=== PATIENT | female | born 2000 | race Caucasian/White ===

== ENCOUNTER → 2019-12-09 | Outpatient (CLI) | payer OTHER ==
[~2019-12-09] MED LIST: AMOX250CH PO; ORACONB; PROM6.25SY PO
== END | disposition home or self-care (01) ==
LOC: PLD 11:16 → LAB SHORT 11:16
DX: D22.5 Melanocytic nevi of trunk (principal)
CPT/HCPCS: 88305

== ENCOUNTER → 2021-01-04 | Outpatient (CLI) | payer OTHER ==
[2021-01-04 17:12] LABS: BASOPHILS ABSOLUTE AUTO 0.05 K/mm3 (0.00-0.23); BASOPHILS PERCENT AUTO 1 % (0-2); EOSINOPHILS ABSOLUTE AUTO 0.26 K/mm3 (0.00-0.68); EOSINOPHILS PERCENT AUTO 3 % (0-6); Hematocrit 38.2 % (33.0-51.0); Hemoglobin 12.2 g/dL (11.5-16.0); IMMATURE GRAN ABSOLUTE AUTO 0.04 K/mm3 (0.00-0.10); IMMATURE GRAN PERCENT AUTO 0 % (0-1); LYMPHOCYTES ABSOLUTE AUTO 2.64 K/mm3 (0.84-5.20); LYMPHOCYTES PERCENT AUTO 27 % (21-46); MONOCYTES ABSOLUTE AUTO 0.64 K/mm3 (0.16-1.47); MONOCYTES PERCENT AUTO 7 % (4-13); Mean Corpuscular HGB 24.3 pg (26.0-34.0); Mean Corpuscular HGB Conc 31.9 g/dL (31.5-36.5); Mean Corpuscular Volume 76 fL (80-100); Mean Platelet Volume 11.8 fL (9.1-12.4); NEUTROPHILS ABSOLUTE AUTO 6.25 K/mm3 (1.96-9.15); NEUTROPHILS PERCENT AUTO 63 % (41-73); Platelet Count 321 K/mm3 (150-400); RDW Coefficient Variation 14.7 % (11.7-14.2); RDW Standard Deviation 40.2 fL (35.1-46.3); Red Blood Cell Count 5.02 M/mm3 (3.80-5.20); White Blood Cell Count 9.88 K/mm3 (4.00-11.30)
[2021-01-04 17:17] LABS: Percent Saturation 9.4 % (15.0-50.0)
== END | disposition home or self-care (01) ==
LOC: LAB SHORT 14:00 → LAB 14:00
PROVIDERS: Nurse Practitioner Family
DX: E07.9 Disorder of thyroid, unspecified (principal); R71.8 Other abnormality of red blood cells
CPT/HCPCS: 82728; 83540; 83550; 84443; 85025

== ENCOUNTER → 2022-10-07 | Outpatient (CLI) | payer OTHER ==
[2022-10-08 15:57] LABS: Candida species (DNA Probe) Negative (NEGATIVE); G. vaginalis (DNA Probe) Negative (NEGATIVE); T. vaginalis (DNA Probe) Negative (NEGATIVE)
== END ==
LOC: LAB 15:48 → LAB SHORT 15:48
PROVIDERS: Family Medicine
DX: N89.8 Other specified noninflammatory disorders of vagina (principal)
CPT/HCPCS: 87480; 87510; 87660

== ENCOUNTER → 2023-04-11 | Outpatient (CLI) | payer OTHER ==
[2023-04-13 09:54] LABS: HEPATITIS B SURFACE ANTIBODY <3.10 IU/L
[2023-04-13 11:55] LABS: HEPATITIS B SURFACE ANTIGEN Negative (Negative)
[2023-04-13 12:25] LABS: HIV 1,2 COMBO ANTIGEN/ANTIBODY Negative (Negative)
[2023-04-14 12:59] LABS: HCV QNT BY NAAT (IU/ML) Not Detected; HCV QNT BY NAAT (LOG IU/ML) Not Detected; HCV QNT BY NAAT INTERP Not Detected (Not Detected)
== END | disposition home or self-care (01) ==
LOC: LAB SHORT 13:51 → LAB 13:51
PROVIDERS: Chiropractor
DX: T14.8XXA Other injury of unspecified body region, initial encounter (principal)
CPT/HCPCS: 84460; 87340; 87389; 87522

== ENCOUNTER → 2024-02-09 | Outpatient (CLI) | payer OTHER ==
[2024-02-09 12:27] LABS: Source, Urine Clean Catch
[2024-02-09 14:52] LABS: Appearance, Urine Hazy (Clear); Bilirubin, Urine Neg (Neg); Blood, Urine 1+ (Neg); Color, Urine Yellow (P-Yellow); Glucose Qualitative, Urine Neg (Neg); Ketones, Urine Neg (Neg); Leukocyte Esterase, Urine 2+ (Neg); Nitrite, Urine Neg (Neg); Protein, Urine 1+ (Neg); Urobilinogen, Urine NORM (Normal)
[2024-02-09 15:46] LABS: Bacteria Many /hpf; Squamous Epithelial Cells Mod /hpf (Few)
== END | disposition home or self-care (01) ==
LOC: LAB SHORT 12:25 → LAB 12:25
PROVIDERS: Registered Nurse Community Health
DX: Z34.91 Encounter for supervision of normal pregnancy, unspecified, first trimester (principal)
CPT/HCPCS: 81001; 87086

== ENCOUNTER → 2024-02-09 | Outpatient (CLI) | payer OTHER ==
[2024-02-09 15:38] LABS: BASOPHILS ABSOLUTE AUTO 0.03 K/mm3 (0.00-0.23); BASOPHILS PERCENT AUTO 0 % (0-2); EOSINOPHILS ABSOLUTE AUTO 0.09 K/mm3 (0.00-0.68); EOSINOPHILS PERCENT AUTO 1 % (0-6); Hemoglobin 13.5 g/dL (11.5-16.0); IMMATURE GRAN ABSOLUTE AUTO 0.03 K/mm3 (0.00-0.10); IMMATURE GRAN PERCENT AUTO 0 % (0-1); LYMPHOCYTES ABSOLUTE AUTO 2.07 K/mm3 (0.84-5.20); LYMPHOCYTES PERCENT AUTO 20 % (21-46); MONOCYTES ABSOLUTE AUTO 0.65 K/mm3 (0.16-1.47); MONOCYTES PERCENT AUTO 6 % (4-13); Mean Corpuscular HGB 24.9 pg (26.0-34.0); Mean Corpuscular HGB Conc 32.1 g/dL (31.5-36.5); Mean Corpuscular Volume 78 fL (80-100); NEUTROPHILS ABSOLUTE AUTO 7.27 K/mm3 (1.96-9.15); NEUTROPHILS PERCENT AUTO 72 % (41-73); Platelet Count 294 K/mm3 (150-400); RDW Coefficient Variation 15.2 % (11.7-14.2); RDW Standard Deviation 42.5 fL (35.1-46.3); Red Blood Cell Count 5.42 M/mm3 (3.80-5.20); White Blood Cell Count 10.14 K/mm3 (4.00-11.30)
[2024-02-10 14:12] LABS: Free Thyroxine 1.04 ng/dL (0.70-1.60); Triiodothyronine, Free 3.32 pg/mL (2.18-3.98)
[2024-02-11 15:55] LABS: HEPATITIS B SURFACE ANTIGEN Negative (Negative)
[2024-02-11 16:29] LABS: HEPATITIS C AB CIA INTERP Negative (Negative); HEPATITIS C ANTIBODY CIA INDEX 0.13 IV
[2024-02-11 18:12] LABS: HIV 1,2 COMBO ANTIGEN/ANTIBODY Negative (Negative)
== END | disposition home or self-care (01) ==
LOC: LAB 10:15 → LAB SHORT 10:15
PROVIDERS: Registered Nurse Community Health
DX: Z34.91 Encounter for supervision of normal pregnancy, unspecified, first trimester (principal)
CPT/HCPCS: 84439; 84443; 84481; 86803; 87340; 87389

== ENCOUNTER → 2024-09-02 | Outpatient (CLI) | payer OTHER ==
[2024-09-02 19:45] LABS: Thyroid Stimulating Hormone 6.3 uIU/mL (0.360-4.800)
== END | disposition home or self-care (01) ==
LOC: LAB SHORT 17:30 → LAB 17:30
PROVIDERS: Family Medicine
DX: E03.9 Hypothyroidism, unspecified (principal)
CPT/HCPCS: 84439; 84443; 84481

== ENCOUNTER 2024-09-30 18:42 | Inpatient (IN) | payer OTHER ==
[~2024-09-30] VITALS: Ht 162.6 cm; Wt 137.0 kg
[2024-09-30] MEDS ORDERED: Oxytocin 10 Unit / ML Vial IM PRN (19:25)
[2024-09-30] MEDS ORDERED: FentaNYL 2mcg/ml-Bup 0.1% Epd 250 ML EPI PRN (19:25)
[2024-09-30] MEDS ORDERED: Methylergonovine Maleate 0.2MG / ML 1ML Amp IM PRN (19:25)
[2024-09-30] MEDS ORDERED: Carboprost Tromethamine 250 MCG/ML 1ML Amp IM PRN (19:25)
[2024-09-30] MEDS ORDERED: ePHEDrine Sulfate 50 MG/ML 1ML Injection XX PRN (19:25)
[2024-09-30] MEDS ORDERED: OXYTOCIN/RINGER'S LACTATE 500 ML IV PRN ×2 (19:25)
[2024-09-30] MEDS ORDERED: Ondansetron HCl 2 MG / ML 2ML Vial IV PRN (19:30)
[2024-09-30] MEDS ORDERED: FentaNYL Citrate 50 MCG/ML 2 ML Injection IV PRN (19:35)
[2024-09-30] MEDS ORDERED: Tranexamic Acid 100 ML IV SCH (19:40)
[2024-09-30 20:03] VITALS: BP 131/81
[2024-09-30 20:14] LABS: BASOPHILS ABSOLUTE AUTO 0.01 K/mm3 (0.00-0.23); BASOPHILS PERCENT AUTO 0 % (0-2); EOSINOPHILS ABSOLUTE AUTO 0.05 K/mm3 (0.00-0.68); EOSINOPHILS PERCENT AUTO 0 % (0-6); Hematocrit 32.5 % (33.0-51.0); Hemoglobin 10.2 g/dL (11.5-16.0); IMMATURE GRAN ABSOLUTE AUTO 0.05 K/mm3 (0.00-0.10); IMMATURE GRAN PERCENT AUTO 0 % (0-1); LYMPHOCYTES ABSOLUTE AUTO 2.02 K/mm3 (0.84-5.20); LYMPHOCYTES PERCENT AUTO 17 % (21-46); MONOCYTES ABSOLUTE AUTO 0.83 K/mm3 (0.16-1.47); MONOCYTES PERCENT AUTO 7 % (4-13); Mean Corpuscular HGB Conc 31.4 g/dL (31.5-36.5); Mean Corpuscular Volume 73 fL (80-100); NEUTROPHILS ABSOLUTE AUTO 8.69 K/mm3 (1.96-9.15); NEUTROPHILS PERCENT AUTO 75 % (41-73); NRBC ABSOLUTE 0.00 K/mm3 (0.00-0.02); NRBC Auto 0.0 /100 WBC (0.0-0.2); Platelet Count 241 K/mm3 (150-400); RDW Coefficient Variation 16.0 % (11.7-14.2); RDW Standard Deviation 41.1 fL (35.1-46.3)
[2024-09-30] MEDS ORDERED: PRENATAL TABLE1 EAC2 PO (20:15)
[2024-09-30] MEDS ORDERED: EUTHYROX88 MCG PO (20:15)
[2024-09-30 20:34] VITALS: BP 133/83
[2024-09-30] MEDS ORDERED: NS 500 ML IV PRN (20:35)
[2024-09-30 21:05] VITALS: BP 116/70
[2024-09-30 21:34] VITALS: BP 125/76
[2024-10-01] VITALS (57 sets, daily range): BP systolic 86–154; BP diastolic 50–98
[2024-10-01] MEDS ORDERED: Rho(D) Immune Globulin 300 MCG / SYR IM ONE (15:55)
[2024-10-01] MEDS ORDERED: Methylergonovine Maleate 0.2MG / ML 1ML Amp IM PRN (15:55)
[2024-10-01] MEDS ORDERED: Acetaminophen/Codeine 300-30 mg PO PRN (15:55)
[2024-10-01] MEDS ORDERED: Witch Hazel/Glycerin PADS TOP PRN (16:00)
[2024-10-01] MEDS ORDERED: Ketorolac Tromethamine 30mg Vial IV PRN (16:00)
[2024-10-01] MEDS ORDERED: Benzocaine Topical Anesthetic Spray 60GM TOP PRN (16:00)
[2024-10-01] MEDS ORDERED: OxyCODONE 5 mg/Acetamin 325 mg TABLET PO PRN (16:05)
[2024-10-01] MEDS ORDERED: OXYTOCIN/RINGER'S LACTATE 500 ML IV SCH (16:05)
[2024-10-01] MEDS ORDERED: Oxytocin 10 Unit / ML Vial IM ONE (16:05)
[2024-10-02 00:37] VITALS: BP 106/57
[2024-10-02 06:18] LABS: BASOPHILS ABSOLUTE AUTO 0.02 K/mm3 (0.00-0.23); BASOPHILS PERCENT AUTO 0 % (0-2); EOSINOPHILS ABSOLUTE AUTO 0.05 K/mm3 (0.00-0.68); EOSINOPHILS PERCENT AUTO 0 % (0-6); Hematocrit 28.8 % (33.0-51.0); Hemoglobin 9.1 g/dL (11.5-16.0); IMMATURE GRAN ABSOLUTE AUTO 0.06 K/mm3 (0.00-0.10); IMMATURE GRAN PERCENT AUTO 0 % (0-1); LYMPHOCYTES ABSOLUTE AUTO 1.97 K/mm3 (0.84-5.20); LYMPHOCYTES PERCENT AUTO 15 % (21-46); MONOCYTES ABSOLUTE AUTO 1.25 K/mm3 (0.16-1.47); MONOCYTES PERCENT AUTO 9 % (4-13); Mean Corpuscular HGB Conc 31.6 g/dL (31.5-36.5); Mean Corpuscular Volume 74 fL (80-100); NEUTROPHILS ABSOLUTE AUTO 10.10 K/mm3 (1.96-9.15); NEUTROPHILS PERCENT AUTO 75 % (41-73); NRBC ABSOLUTE 0.00 K/mm3 (0.00-0.02); NRBC Auto 0.0 /100 WBC (0.0-0.2); Platelet Count 180 K/mm3 (150-400); RDW Coefficient Variation 16.6 % (11.7-14.2); RDW Standard Deviation 43.8 fL (35.1-46.3)
[2024-10-02] MEDS ORDERED: Rho(D) Immune Globulin 300 MCG / SYR IV ONE (08:10)
[2024-10-02 08:35] VITALS: BP 112/62
[2024-10-02] MEDS ORDERED: Prenatal Vit/FE Fumarate/FA 1 Tab PO SCH (09:00)
[2024-10-02] MEDS ORDERED: Phenyleph/Mineral Oil/Petrolat 1 APPLIC/57 GM Tube PR ONE (13:00)
[2024-10-02] MEDS ORDERED: Phenyleph/Mineral Oil/Petrolat 1 APPLIC/57 GM Tube PR PRN (13:00)
== END 2024-10-02 17:20 | disposition home or self-care (01) | DRG 807 ==
LOC: OBS 18:42 → BC 18:53
PROVIDERS: ADMIT Registered Nurse Community Health
PROC: 10D07Z6 Extraction of Products of Conception, Vacuum, Via Natural or Artificial Opening (ICD-10-PCS; principal; 2024-10-01)
PROC: 3E0R3BZ Introduction of Anesthetic Agent into Spinal Canal, Percutaneous Approach (ICD-10-PCS; 2024-10-01)
PROC: 00HU33Z Insertion of Infusion Device into Spinal Canal, Percutaneous Approach (ICD-10-PCS; 2024-10-01)
DX: O48.0 Post-term pregnancy (principal); Z37.0 Single live birth; O99.62 Diseases of the digestive system complicating childbirth; K21.9 Gastro-esophageal reflux disease without esophagitis; O99.214 Obesity complicating childbirth; E66.01 Morbid (severe) obesity due to excess calories; Z3A.40 40 weeks gestation of pregnancy; Z90.89 Acquired absence of other organs; Z98.890 Other specified postprocedural states; Z3A.41 41 weeks gestation of pregnancy; O70.0 First degree perineal laceration during delivery
CPT/HCPCS: 36415; 51702; 84443; 85025; 85460; 86850; 86900; 86901; 86923; A9270; J1885; J2405; J2590; J2791; J7120